=== PATIENT | female | born 1985 | race Caucasian/White ===

== ENCOUNTER 2016-12-02 16:03 | Day surgery (SDC) | payer MEDICAID ==
[2016-12-02] MEDS ORDERED: Propofol 200 MG/20 ML SDV IV ONE (17:00)
[2016-12-02] MEDS ORDERED: Lidocaine 2% 100 MG/5 ML Syringe IVPUSH ONE (17:00)
[2016-12-02] MEDS ORDERED: Citric Acid/Sodium Citrate Solution 30 ML Cup PO ONE (17:00)
--- NOTE | 2016-12-02 17:20 | PCM.OPNOTE ---
- General Post-Op/Procedure Note Date of Surgery/Procedure: 12/02/16 Operative Procedure(s): EGD Findings: No evidence of foreign body Reflux esophagitis Pre Op Diagnosis: Pain in throat - possible foreign body Post-Op Diagnosis: Abscence of foreign body. Reflux esophagitis Anesthesia Technique: MAC Primary Surgeon: Fede Scott Pathology: none Output, Urine Amount: 0 EBL in mLs: 0 Complications: None Condition: Good
[2016-12-02] MEDS ORDERED: Lactated Ringers 1,000 ML IV SCH (17:30)
[2016-12-02 20:08] VITALS: BP 114/79
--- NOTE | 2016-12-03 01:22 | OR ---
DATE OF OPERATION: 12/02/2016 SURGEON: Fede Scott MD REFERRING PROVIDER: Thong Guzman PA-C PREOPERATIVE DIAGNOSES: Throat pain, possible foreign body, and gastroesophageal reflux disease. POSTOPERATIVE DIAGNOSES: Absence of foreign body and reflux esophagitis. OPERATION PERFORMED: Esophagogastroduodenoscopy. INDICATIONS FOR SURGERY: This 30-year-old female has noted sensation of a foreign body on the left side of her throat since eating over 24 hours ago. She feels the symptoms are worsening and is having increasing difficulty swallowing and even some vomiting. Upper endoscopy is planned to evaluate for possible foreign body. FINDINGS: No evidence of foreign body is noted in the oropharynx. Some minor degree of irritation in the throat is seen, but there was no unusual swelling, anatomic abnormality, or foreign body noted. The esophagus was also clear of any foreign body. There is a mild degree of inflammation at the GE junction consistent with reflux esophagitis, but no stenosis or narrowing is noted. Her stomach and upper duodenum appear normal. PROCEDURE IN DETAIL: The patient was taken to the procedure room. She was given intravenous sedation and her throat was topically anesthetized. The Olympus gastroscope was advanced through a bite block into the patient's mouth and then advanced to her oropharynx. Careful examination of the oropharynx was performed with good views of the vocal cords and other anatomic structures in this area being achieved. The area appeared clear with no evidence of any foreign body or injury to the throat. This might have been some mild irritation on the left side, but no significant abnormality was noted. The scope was then advanced into the esophagus and slowly advanced down through the length of the esophagus with this area also appearing normal without narrowing or foreign body. The scope was then advanced into the stomach and into the duodenum where examination to the third portion was performed. Careful examination of these areas including retroflexed examination of the fundus of the stomach was carried out. The scope was withdrawn allowing re-examination of the GE junction and esophagus. The scope was removed and the patient was taken from the procedure room in satisfactory condition. ESTIMATED BLOOD LOSS: Zero. COMPLICATIONS: None. PROGNOSIS: Good. /[id number] SONJA/NHUNGL
--- NOTE | 2016-12-03 01:46 | HP ---
ADMISSION DATE: 12/02/2016 HISTORY OF PRESENT ILLNESS: This 30-year-old female is seen today as referred by Carlitos Guzman in [place]. She is complaining of difficulty swallowing and possibly having something in her throat. She states that yesterday about noon she was eating a piece of bread with peanut butter and jelly on it. She noted while eating this that it seemed to become lodged and caused irritation to the left side of her throat. The symptoms have persisted despite efforts of the patient to remove any possible foreign body. She has had no respiratory compromise. She has had some difficulty swallowing and even had some episodes of vomiting. She notes increased secretions in her mouth. Currently the patient's pain is primarily on the left side of the neck. She has some occasional radiation of pain up into the left ear and she does continue to note difficulty swallowing, although she has been able to get some liquids down. PAST MEDICAL HISTORY: Shows previous knee surgery. She does not have any known serious illnesses. Does not take routine medications except for vitamins. She recently delivered a small child and is currently breast-feeding. She denies any smoking or chewing of tobacco. FAMILY HISTORY: Negative for known anesthetic complications or any history of throat abnormalities. SYSTEM REVIEW: Shows no other recent health related complaints. PHYSICAL EXAMINATION: VITAL SIGNS: Temperature is 97.6, pulse 100, blood pressure is 129/78, respirations were 18. They were then labored. No audible wheezing is noted. HEENT: Head is normocephalic. There is no scleral icterus. NECK: Supple. There is no cervical swelling or cervical masses identified. There is mild tenderness to palpation along the left side of the neck near the angle of the jaw. Examination of the mouth shows no visible mucosal lesions or significant hyperemia. Teeth are intact. Tonsils are present. They do not appear to be acutely inflamed or otherwise swollen and I do not see any evidence of mass, visible signs of inflammation, or foreign bodies on oral examination. HEART: Regular. LUNGS: Clear. ABDOMEN: Soft. Nontender. No palpable masses. No hepatic or splenic enlargement. IMPRESSION: Possible foreign body in throat/esophagus. RECOMMENDATIONS: Advised EGD to which the patient agrees. I have discussed this proposed procedure with her, and she consents to having this performed, and wishes it done today, because of the persistence of her symptoms and she accepts risks. We will obtain a urine test and her procedure will be performed when the procedure room is available. /[id number] SONJA/YEMI
== END 2016-12-02 18:10 | disposition home or self-care (01) ==
LOC: FB.SDS 16:03 → FB.MS 17:30 → FB.SDS 18:10
PROVIDERS: ATTEND Surgery
DX: K21.0 Gastro-esophageal reflux disease with esophagitis (principal); Z98.890 Other specified postprocedural states
CPT/HCPCS: 43235; 81025; A9270; J2704; J7120